=== PATIENT | female | born 1990 | race Caucasian/White ===

== ENCOUNTER 2019-02-16 10:09 | Inpatient (IN) | payer MEDICAID ==
[~2019-02-16] VITALS: Ht 170.2 cm; Wt 79.4 kg
[~2019-02-16 10:09] MED LIST: LORA5TAB16 PO; PREN1COM15; VALA500T63 PO
[2019-02-16 10:19] VITALS: BP 118/73; Ht 170.2 cm; Wt 79.4 kg
[2019-02-16 12:55] LABS: PLATELET COUNT, AUTOMATED 150 K/uL (150-450)
[2019-02-16] MEDS ORDERED: LR(*) 1000 ML BAG 1,000 ML ONE (12:58)
[2019-02-16] MEDS ORDERED: FAMOTIDINE(*) 20MG/50ML PREMIX 50 ML IVPB PRN (13:08)
[2019-02-16] MEDS ORDERED: OXYTOCIN 30 UNIT/NS 500 ML 500 ML IV PRN (13:08)
[2019-02-16] MEDS ORDERED: LIDOCAINE/PF 2% 200MG/10ML AMP 200 MG/10 ML AMPUL EPI PRN (13:10)
[2019-02-16] MEDS ORDERED: LIDOCAINE/SOD BICARB 8.4% SYR SC PRN (13:10)
[2019-02-16] MEDS ORDERED: FENTANYL/ROPIVACAINE 100 ML BAG EPI PRN (13:10)
[2019-02-16] MEDS ORDERED: LIDO/EPI 2% MPF 1:200,000 20ML EPI PRN (13:10)
[2019-02-16] MEDS ORDERED: BUPIVACAINE 0.5% INJ 30ML VIAL EPI PRN (13:10)
[2019-02-16] MEDS ORDERED: FLUSH 10 ML SYR IVP PRN (13:10)
[2019-02-16] MEDS ORDERED: LIDOCAINE 1% LOCAL 300 MG/30ML INJ PRN (13:10)
[2019-02-16] MEDS ORDERED: fentaNYL CITR 100 MCG/2 ML AMP IVP PRN (13:10)
[2019-02-16] MEDS ORDERED: METOCLOPRAMIDE 10 MG/2 ML SDV IVP PRN (13:10)
[2019-02-16] MEDS ORDERED: fentaNYL CITR 100 MCG/2 ML AMP IT PRN (13:10)
[2019-02-16] MEDS ORDERED: BUPIVACAINE 0.25% MPF INJ EPI PRN (13:10)
--- NOTE | 2019-02-16 15:35 | Anesthesia OB Pre-Anes Eval ---
History of Present Illness Anesthesia Start Date: Feb 16, 2019 Anesthesia Start Time: 14:55 OB Anesthesia Diagnosis: spontaneous labor EDC: Feb 20, 2019 : 1 Para: 1 Vital Signs: Vital Signs Date Time Temp Pulse Resp B/P (MAP) Pulse Ox O2 Delivery O2 Flow Rate FiO2 02/16/19 10:19 97.8 69 15 118/73 (88) 97 Room Air Pain Ratin Result Diagram: 02/16/19 1231 Height (Inches): 67.00 Weight (Pounds): 175 Past Medical History Medical History: no pertinent history Surgical History: no surgical history Attended Childbirth Classes?: No Hx Anesthesia Reactions: No Hx Family Anesthesia Reaction: No Home Meds Reported Medications Valacyclovir Hcl (VALACYCLOVIR) 500 Mg Tablet, 500 MG PO 02/08/19 Loratadine (CLARITIN) 5 Mg Tab.rapdis, 5 MG PO 02/08/19 Vit #105/Iron/FA/Dha (Prena1 True Combo Pack) 30 Mg Iron-1.4 Mg-300 Mg Combo..pkg 02/08/19 [None] No Conflict Check, 0 Refills 11/19/08 Allergies: Uncoded Allergies: NONE (Allergy, Mild, 05/29/08) Anesthesia OB ROS Neurological: No migraines/headaches, No seizures, No neuropathy, No other ENT: Denies Tooth caps, Denies Loose teeth, Denies Chipped teeth, Denies Dentures, Denies Bridges, Denies Retainers, Denies Veneers, Denies Implants, Denies Tongue ring, Denies Other Pulmonary: No asthma, No smoker (pks/day/yrs), No other Airway Class: ll Cardiovascular ROS: No edema, No arrhythmia, No other GI ROS: clear liquids ROS: No Herpes, No STD(s), No Liver Disease, No Renal Disease, No Other Endocrine ROS: No diabetes, No gestational diabetes, No thyroid disorder, No other Musculoskeletal ROS: No low back pain, No low back injury, No scoliosis, No other ASA Classification: 2 Assessment and Plan Anesthesia Plan: JOVANI RAINEY CRNA Feb 16, 2019 15:35
[2019-02-16] MEDS: LR(*) 1000 ML BAG 1,000 ML IV SCH ×2 (15:37→19:05)
--- NOTE | 2019-02-16 15:39 | Procedure Note ---
Anesthetic Placement Note Anesthesia Plan: LEB (dural puncture technique) Permit for Anesthesia Signed: Yes Anesthesia Technique: Patient Sitting Anesthesia Prep: Chlorhexidine Interspace: L 4-5 Local Anesthetic: 1% Lidocaine, 25 Gauge Needle Amount Local - cc's: 3 Anesthesia Needle: 17g Touhy/Schliff Anesthesia Attempts: 1 Loss of Resistance: Normal Saline Depth of MILAN (cm): 4.5 Epidural Needle Placement: No CSF, No Blood, No Parasthesia Intrathecal Needle: 27 Gauge Pencan Cerebral Spinal Fluid: Yes, Clear Catheter Insertion (cm): 5 Catheter Type: Tristan - Spring Wound Epidural Dressing: Tegaderm, Tape Anesthesia Tray: Lot Number ([id number]), Expiration Date (02/19/2020), Reference Number ([id number]) Anesthesia Medications: Epidural Test Dose: 1.5 Lido/Epi (1:200,000), Dose - mL (5 mL incrementally), Time (1513), Negative Epidural Loading Dose: 0.2% Ropivicaine, With Fentanyl 2mcg/ml, Dose - ml (6), Time (1522), Other (100 mcg Fentanyl via epidural bolus at 1518) Epidural Infusion: 0.2% Ropivicaine, With Fentanyl 2mcg/ml, Start Time: (1522) Epidural Pump Setting: Bolus Dose - mL (5), Lockout - Minutes (20), Maintenance Rate - mL/hr (8), Maximum per Hour - mL (23) Complications: None JOVANI KEITH CRNA Feb 16, 2019 15:39
--- NOTE | 2019-02-16 16:04 | History & Physical ---
History of Present Illness Age of Patient: 28 : 1 Para or TPAL: 0 EDC per LMP: Feb 20, 2019 Estimated Gestational Age: 39.3 Chief Complaint Labor History of Present Illness Presents with report of contractions since 0400 and worsening through the day. Has been here for some time and is progressively changing her cervix. has been uncomplicated although she has known HSV-1 but nothing genital. She is Rh negative, rubella immune, GBS negative. Past Medical, Surgical, Family and Obstetric Histories reviewed. Please see OG chart. History Allergies: Uncoded Allergies: NONE (Allergy, Mild, 05/29/08) Med Rec Home Meds Reported Medications Valacyclovir Hcl (VALACYCLOVIR) 500 Mg Tablet, 500 MG PO 02/08/19 Loratadine (CLARITIN) 5 Mg Tab.rapdis, 5 MG PO 02/08/19 Vit #105/Iron/FA/Dha (Prena1 True Combo Pack) 30 Mg Iron-1.4 Mg-300 Mg Combo..pkg 02/08/19 [None] No Conflict Check, 0 Refills 11/19/08 Review of Systems All Systems Reviewed/Normal: Yes, Except as Noted Exam General Exam Vital Signs Vital Signs Date Time Temp Pulse Resp B/P (MAP) Pulse Ox O2 Delivery O2 Flow Rate FiO2 02/16/19 10:19 97.8 69 15 118/73 (88) 97 Room Air General Apperance: Alert/Awake/No Acute Distress Neuro: No Gross deficits Cardiovascular: Regular Rate and Rhythm Respiratory: No Respiratory Distress Abdomen: Soft, Non-Tender, Non-Distended Extremities: No Cyanosis,Clubbing or Edema Integumentary: Skin Intact without Lesions or Rash Psychological: Alert & Oriented X3 Vaginal Discharge/Fluid?: Bloody Show, Clear Fluid (AROM) Cervical Dialation: 6 Cervical Effacement (%): 100 Cervical Consistency: Soft Cervical Position: Anterior Station: -1 Presentation: Vertex Fetus Heart Tone Variabilty: Moderate FHT Accelerations: 15X15 FHT Category: I Medical Decision Making Data Points Result Diagram: 02/16/19 1231 VTE Prophylasis: Adult Deep Vein Thrombosis/Pulmonary: No Pharmacological Contraindicati: Pt at Low Risk for VTE Mechanical Contraindications: Pt at Low Risk for VTE 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
--- NOTE | 2019-02-16 17:20 | Anesthesia Progress Note ---
Progress/Maintenance Anesthesia Note Date: Feb 16, 2019 Anesthesia Note Time: 17:15 Pain Intensity: 0 Pump: On Pump Rate (ML/HR): 8 Motor Level: Bending Knees-Bilateral Dilatation: 6 Assessment and Plan Anesthesia Plan: JOVANI RAINEY CRNA Feb 16, 2019 17:20
[2019-02-16] MEDS ORDERED: FAMOTIDINE(*) 20MG/50ML PREMIX 50 ML IVPB ONE (18:30)
--- NOTE | 2019-02-16 18:50 | Anesthesia Progress Note ---
Progress/Maintenance Anesthesia Note Date: Feb 16, 2019 Anesthesia Note Time: 18:45 Pain Intensity: 0 Pump: On Pump Rate (ML/HR): 8 Motor Level: Bending Knees-Bilateral Dilatation: 7 Assessment and Plan Anesthesia Plan: LEB Assessment: Progression of labor slowed currently. Pitocin is being started. JOVANI KEITH CRNA Feb 16, 2019 18:50
[2019-02-16] MEDS ORDERED: ONDANSETRON 4 MG/2 ML VIAL IVP PRN (19:00)
--- NOTE | 2019-02-16 19:49 | Labor Progress Note ---
Labor Subjective Progress Notes Subjective Spontaneous deceleration into the 80s following a period of accelerations. Spontaneous return to baseline after 6 minutes and now with good variability and accelerations. Feeling Movement?: Yes Vaginal Discharge/Fluid: Bloody Show, Clear Fluid Labor Objective Vital Signs Vital Signs Date Time Temp Pulse Resp B/P (MAP) Pulse Ox O2 Delivery O2 Flow Rate FiO2 02/16/19 10:19 97.8 69 15 118/73 (88) 97 Room Air Cervical Dialation: 10 Cervical Effacement (%): 100 Station: +1 Presentation: Vertex (ROP) Other Result Diagram: 02/16/19 1231 Assessment and Plan Problems: (1) 39 weeks gestation of (2) Normal labor Assessment & Plan: Pitocin shut off but was only on 4 mu/min. O2 in place and fluid bolus had been given along with position changes. Now stabilized. Will labor down for 30 min and then start pushing. Manual rotation attempted but ultimately unsuccessful. Will see if rotation possible during second stage. Discussed forceps delivery as an option if FHTs become a concern again. Questions answered. GOPI HENSON MD Feb 16, 2019 19:48
[2019-02-16] MEDS ORDERED: ONDANSETRON 4 MG/2 ML VIAL ONE (20:08)
[2019-02-16] MEDS ORDERED: cefOXitin/DEX(*) 2GM/50ML PREM 50 ML IVPB ONE (20:50)
--- NOTE | 2019-02-16 20:56 | Anesthesia Progress Note ---
Progress/Maintenance Anesthesia Note Date: Feb 16, 2019 Anesthesia Note Time: 20:53 Assessment and Plan Assessment: female delivered at 2036. Anesthesia Stop Day: Feb 16, 2019 Anesthesia Stop Time: 20:37 JOVANI KEITH CRNA Feb 16, 2019 20:56
[2019-02-16] MEDS ORDERED: BENZOCAINE 20% 60 ML BTL TP PRN (21:05)
[2019-02-16] MEDS ORDERED: LANOLIN OINT 7 GM TUBE TP PRN (21:05)
[2019-02-16] MEDS ORDERED: MEASLES,MUMP,RUBELLA VAC 0.5ML SC ONE (21:05)
[2019-02-16] MEDS ORDERED: ACETAMINOPHEN 325 MG TAB PO PRN (21:05)
[2019-02-16] MEDS ORDERED: HYDROCORTISONE 2.5% CR 30GM TB PR PRN (21:05)
[2019-02-16] MEDS ORDERED: INFLUENZA VIRUS VAC 0.5ML SYR IM ONLY ONE (21:05)
[2019-02-16] MEDS ORDERED: GLYCERIN/WITCH HAZEL LEAF 1 PK TOP PRN (21:05)
[2019-02-16] MEDS ORDERED: MAGNESIUM HYDROXIDE* 30ML UDCP PO PRN (21:05)
[2019-02-16] MEDS ORDERED: DIPHTH/TETANUS/ACEL. PERTUSSIS IM ONE (21:05)
--- NOTE | 2019-02-16 21:10 | OB Delivery Note ---
Delivery Note Vaginal Delivery Type: Spont. Vaginal Delivery Delivery Date: Feb 16, 2019 Delivery Time: 20:37 Estimated Gestational Age(wks): 39.3 Delivery Anesthesia: Epidural Sex: Female [place] Apgars: 1 Minute (9), 5 Minute (9) Repair Needed: Episiotomy-Midline, 2nd Degree Estimated Blood Loss: 300 Delivery Complications: Retained Placenta (with manual removal), Nuchal Cord (x 2) Notes: Normal labor. Admitted at 0 dilation and progressed to 2 cm by 1230, 4cm by 1430 and epidural placed at 1455. Progression to 6 cm by 1552 and pitocin autmentation at 1842. Completely dilated at 1923. Several episodes of prolonged decelerations noted with return to category 1 after resusitation followed by late declerations during second stage of labor that resolved into early and variable decelerations. Was consented and ready for forceps assisted delivery but she was progressing so well, a midline second degree episiotomy was all that was needed to expidite delivery. Delivered in LEONIDAS position with nuchal cord x 2 easily reduced. The rest of baby followed with a maternal push. No laceration extensions noted. Placenta retained and was tearing so manual extraction was performed. She has an excellent epidural and was comfortable during the whole extraction. The entire uterine cavity was palpated and was free of placental tissue upon completion. Uterus massaged firm and bleeding scant. Repair with 2-0 chromic with excellent result. No complication. Subgrade Tester in Attendence: GOPI Sandy MD Feb 16, 2019 21:10
[2019-02-17] MEDS ORDERED: IBUPROFEN 800 MG TAB PO SCH (01:00)
[2019-02-17] MEDS ORDERED: cefOXitin/DEX(*) 2GM/50ML PREM 50 ML IVPB ONE (01:51)
[2019-02-17 02:55] VITALS: BP 116/56
[2019-02-17] MEDS: IBUPROFEN 800 MG TAB PO SCH ×3 (05:53→21:43)
[2019-02-17 08:29] VITALS: BP 107/61
--- NOTE | 2019-02-17 11:41 | OB/GYN Progress Note ---
OB Subjective Progress Notes Subjective Feeling well. Up ambulating and bleeding light. Voiding well. GI: NEG Nausea : Voiding Well Pain: Mild OB Objective Physical Exam Vital Signs Date Time Temp Pulse Resp B/P (MAP) Pulse Ox O2 Delivery O2 Flow Rate FiO2 02/17/19 08:29 98.4 86 18 107/61 (76) Room Air 02/17/19 02:55 93 Intake and Output 02/17/19 07:01 Intake Total 3400 ml Output Total 2050 ml Balance 1350 ml Intake IV Total 3400 ml Output Urine Total 2050 ml # Voids 3 General Appearance: Alert/Awake/No Acute Distress Neurological: No Gross deficits Respiratory: No Respiratory Distress Abdomen: Fundus Firm, Non-Tender Extremities: No Cyanosis,Clubbing or Edema Integumentary: Skin Intact without Lesions or Rash Psychological: Alert & Oriented X3 Result Diagram: 02/17/19 0548 Assessment and Plan 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 Supportive care. GOPI HENSON MD Feb 17, 2019 11:41
--- NOTE | 2019-02-17 12:37 | Anesthesia Post Eval Note ---
Anesthesia Post Eval Note Vital Signs Date Time Temp Pulse Resp B/P (MAP) Pulse Ox O2 Delivery O2 Flow Rate FiO2 02/17/19 08:29 98.4 86 18 107/61 (76) Room Air 02/17/19 02:55 93 Pt able to participate in Eval: Yes Cardiovascular Status: Satisfactory Respiratory Status: Satisfactory Pain Managment: Satisfactory PO Nausea/Vomiting: Satisfactory Temperature Management: Satisfactory Mental Status: Satisfactory, Alert, Oriented X3 Post-Op Hydration Status: Satisfactory, Tolerating PO Well, Voiding w/o Difficulty Anesthesia Type: LEB Anesthesia Tolerance: No complications noted. JOVANI KEITH CRNA Feb 17, 2019 12:37
[2019-02-17] MEDS: DOCUSATE CALCIUM 240 MG CAP PO SCH ×2 (12:55→20:41)
[2019-02-17 19:41] VITALS: BP 109/56
[2019-02-17] MEDS: APAP/HYDROCODONE 325/5 TAB PO PRN ×2 (20:42→21:16)
[2019-02-17 23:51] VITALS: BP 113/70
[2019-02-18 02:34] VITALS: BP 99/50
[2019-02-18] MEDS: IBUPROFEN 800 MG TAB PO SCH (05:31)
[2019-02-18] MEDS: DOCUSATE CALCIUM 240 MG CAP PO SCH (10:05)
[2019-02-18 10:45] VITALS: BP 119/71
--- NOTE | 2019-02-18 10:46 | OB/GYN Progress Note ---
OB Subjective Progress Notes Subjective Feeling well. Pain well controlled and bleeding light. Sore nipples. GI: NEG Nausea : Voiding Well Pain: Mild OB Objective Physical Exam Vital Signs Date Time Temp Pulse Resp B/P (MAP) Pulse Ox O2 Delivery O2 Flow Rate FiO2 02/18/19 02:34 98.5 76 16 99/50 (66) 95 Room Air Intake and Output 02/18/19 07:02 Intake Total 120 ml Balance 120 ml Intake Oral 120 ml # Voids 1 General Appearance: Alert/Awake/No Acute Distress Neurological: No Gross deficits Respiratory: No Respiratory Distress, Clear to Auscultation Abdomen: Soft, Non-Tender, Non-Distended, Fundus Firm, Non-Tender Extremities: No Cyanosis,Clubbing or Edema Integumentary: Skin Intact without Lesions or Rash Psychological: Alert & Oriented X3, Appropriate Mood & Affect Result Diagram: 02/17/19 0548 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 GOPI HENSON MD Feb 18, 2019 10:46
[2019-02-18] MEDS ORDERED: IBUP800T37 PO (10:49)
--- NOTE | 2019-02-18 10:51 | OB/GYN Discharge Summary ---
Discharge Summary Reason for Hosp/Final Diag: (1) 39 weeks gestation of (2) Normal labor Hospital Course & Plan: s/p , second degree episiotomy repaired (3) care and examination immediately after delivery Hospital Course & Plan: Reviewed discharge instructions and precautions. 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 Mcclendon [phone] Follow up in: 6 wks PP or PO Discharge Diet: As Tolerates Discharge Activity: As Tolerates, No Heavy Lifting x 6 wks, No Heavy Lifting > 10lb, Pelvic Rest Copies to: GOPI MCCLENDON MD ; GOPI MCCLENDON MD Feb 18, 2019 10:51
== END 2019-02-18 12:15 | disposition home or self-care (01) | DRG 806 ==
LOC: OB 10:09
PROVIDERS: ADMIT Obstetrics & Gynecology; ATTEND Obstetrics & Gynecology
PROC: 10D07Z3 Extraction of Products of Conception, Low Forceps, Via Natural or Artificial Opening (ICD-10-PCS; principal; 2019-02-16)
PROC: 10D17Z9 Manual Extraction of Products of Conception, Retained, Via Natural or Artificial Opening (ICD-10-PCS; 2019-02-16)
PROC: 10907ZC Drainage of Amniotic Fluid, Therapeutic from Products of Conception, Via Natural or Artificial Opening (ICD-10-PCS; 2019-02-16)
PROC: 0W8NXZZ Division of Female Perineum, External Approach (ICD-10-PCS; 2019-02-16)
PROC: 3E0334Z Introduction of Serum, Toxoid and Vaccine into Peripheral Vein, Percutaneous Approach (ICD-10-PCS; 2019-02-16)
DX: O69.81X0 Labor and delivery complicated by cord around neck, without compression, not applicable or unspecified (principal); O36.0130 Maternal care for anti-D [Rh] antibodies, third trimester, not applicable or unspecified; Z37.0 Single live birth; O73.0 Retained placenta without hemorrhage; B00.9 Herpesviral infection, unspecified; Z3A.39 39 weeks gestation of pregnancy
CPT/HCPCS: 36415; 81001; 85025; 85027; 85461; 86850; 86870; 86900; 86901; J0694; J2405; J2590; J2791; J7120